=== PATIENT | female | born 1995 | race Caucasian/White ===

== ENCOUNTER 2020-12-18 06:06 | Inpatient (IN) ==
[2020-12-18] MEDS ORDERED: BUTORPHANOL 2 MG/ML VIAL IV PRN (06:15)
[2020-12-18] MEDS ORDERED: ONDANSETRON 4 MG/2 ML VIAL IV PRN ×2 (06:15→20:17)
[2020-12-18] MEDS ORDERED: MEPERIDINE 50 MG/1 ML VIAL IV PRN (06:15)
[2020-12-18] MEDS: LACTATED RINGERS 1,000 ML IV SCH ×2 (06:47→17:04)
[2020-12-18 06:51] LABS: Basophils % 0.3 % (0.0-0.8); Eosinophils # 0.2 10*3/uL (0.0-0.87); Eosinophils % 1.6 % (0.00-10.9); Hematocrit 33.2 VOL% (35.7-47.0); Hemoglobin 10.9 GM/DL (12.0-16.0); Immature Granulocytes % 0.8 %; Immature Granulocytes Absolute 0.07 #; Lymphocytes % 21.5 % (21.3-54.2); Mean Corpuscular HGB Conc 32.8 GM/DL (32-36); Mean Corpuscular Volume 92.5 FL (87-102); Mean Platelet Volume 10.8 FL (9.6-12.0); Monocytes % 6.5 % (1.7-12.7); Neutrophils % 69.3 % (38.7-73.9); Platelet Count 276 T/CUMM (130-400); Red Blood Count 3.59 MC/CUMM (3.8-5.5); Red Cell Distribution Width 12.5 % (9.3-17.3); White Blood Count 9.3 T/CUMM (4-12)
[2020-12-18] MEDS ORDERED: AMPICILLIN INJ 2,000 MG in SODIUM CHLORIDE 0.9% 100 ML IV ONE (07:12)
[2020-12-18] MEDS: OXYTOCIN/LR 20 UNIT/1,000 ML BAG IV SCH ×2 (07:19→20:27)
[2020-12-18 07:25] LABS: Albumin 2.5 G/DL (3.4-5.0); Bilirubin,Total 0.5 MG/DL (0.20-1.00); Calcium 8.2 MG/DL (8.5-10.1); Osmolality,Calculated 276.5 MOS/KG (273-304); Potassium 3.6 MMOL/L (3.5-5.1); Total Protein 6.2 G/DL (6.4-8.2)
[2020-12-18] MEDS: AMPICILLIN INJ 1,000 MG in SODIUM CHLORIDE 0.9% 100 ML IV SCH ×3 (11:31→20:29)
[2020-12-18] MEDS ORDERED: FAMOTIDINE 20 MG/2 ML VIAL IV ONE (12:37)
[2020-12-18] MEDS ORDERED: LACTATED RINGERS 1,000 ML IV ONE (12:37)
[2020-12-18] MEDS ORDERED: ePHEDrine 50 MG/ML VIAL IV PRN (12:37)
[2020-12-18] MEDS ORDERED: CITRIC ACID/SODIUM CITRATE 30 ML UDCUP PO ONE (12:37)
[2020-12-18] MEDS ORDERED: PROMETHAZINE 25 MG/1 ML VIAL IM ONE (12:38)
[2020-12-18] MEDS ORDERED: NALOXONE 0.4 MG/ML VIAL IV PRN (12:38)
[2020-12-18] MEDS ORDERED: hydrOXYzine HCL 25 MG/1 ML VIAL IM PRN (12:38)
[2020-12-18] MEDS ORDERED: diphenhydrAMINE 50 MG/1 ML VIAL IV PRN ×2 (12:38)
[2020-12-18] MEDS ORDERED: LACTATED RINGERS 1,000 ML IV SCH (13:00)
[2020-12-18] MEDS ORDERED: fentaNYL 2 MCG/ROPIV 0.2% EPID 100 ML EPIDURAL SCH (13:00)
[2020-12-18 15:12] LABS: Bacteria,Urine Occasional /HPF (Few); Bilirubin,Urine Negative (Negative); Blood, Urine Negative (Negative); Glucose,Urine (UA) Negative (Negative); Hyaline Casts,Urine 1 /LPF (0-3); Ketones,Urine 20 mg/dL (Negative); Mucus,Urine Occasional /LPF (Occasional); Nitrite,Urine Negative (Negative); Protein,Urine Negative; RBC,Urine <1 /HPF (0-4); Urine Appearance CLEAR (Clear); Urine Color Straw (Yellow); Urine Specific Gravity 1.008 (1.001-1.035); Urine Urobilinogen < 2.0 EU/DL (0.2-1.0)
[2020-12-18] MEDS ORDERED: SODIUM CHLORIDE 0.9% 0 ML IV ONE (17:37)
[2020-12-18] MEDS ORDERED: miSOPROStoL 200 MCG TABLET ONE (17:37)
[2020-12-18] MEDS ORDERED: TRANEXAMIC ACID 1,000 MG/10 ML VIAL ONE (17:37)
[2020-12-18] MEDS ORDERED: CARBOPROST TROMETHAMINE 250 MCG/ML AMP IM ONE (17:38)
[2020-12-18] MEDS ORDERED: METHYLERGONOVINE 0.2 MG/1 ML AMP ONE ×2 (17:38→19:42)
[2020-12-18] MEDS ORDERED: LIDOCAINE 1% 50 ML VIAL ONE (19:34)
[2020-12-18] MEDS ORDERED: METHYLERGONOVINE 0.2 MG/1 ML AMP IM ONE (19:44)
[2020-12-18 20:00] LABS: Cord Venous Blood HCO3 21.3 MMOL/L; Cord Venous Blood PCO2 44.1 MMHG; Cord Venous Blood PO2 24.4
[2020-12-18] MEDS ORDERED: BISACODYL 10 MG SUPP RECTAL PRN (20:17)
[2020-12-18] MEDS ORDERED: LANOLIN 50% CREAM 0.3 OZ TUBE TOP PRN (20:17)
[2020-12-18] MEDS ORDERED: WITCH HAZEL PADS 100/JAR TOP PRN (20:17)
[2020-12-18] MEDS ORDERED: oxyCODONE/ACETAMINOPHEN 5-325 MG TABLET PO PRN (20:17)
[2020-12-18] MEDS ORDERED: HYDROCORTISONE 2.5% RECTAL CREAM 30 GM TUBE TOP PRN (20:17)
[2020-12-18] MEDS ORDERED: BENZOCAINE 20%/MENTHOL 0.5% SPRAY 56 GM CAN TOP PRN (20:17)
[2020-12-18] MEDS ORDERED: ACETAMINOPHEN 325 MG TABLET PO PRN (20:17)
[2020-12-18] MEDS: DOCUSATE SODIUM 100 MG CAPSULE PO SCH (21:00)
[2020-12-18] MEDS: IBUPROFEN 800 MG TABLET PO PRN (22:25)
[2020-12-19] MEDS: oxyCODONE/ACETAMINOPHEN 5-325 MG TABLET PO PRN ×2 (00:32→06:05)
[2020-12-19] MEDS: LACTATED RINGERS 1,000 ML IV SCH (01:58)
[2020-12-19 05:48] LABS: Basophils # 0.1 10*3/uL (0.0-0.2); Basophils % 0.4 % (0.0-0.8); Eosinophils # 0.2 10*3/uL (0.0-0.87); Eosinophils % 1.4 % (0.00-10.9); Hematocrit 31.7 VOL% (35.7-47.0); Hemoglobin 10.1 GM/DL (12.0-16.0); Immature Granulocytes % 0.6 %; Immature Granulocytes Absolute 0.07 #; Lymphocytes # 2.2 10*3/uL (1.4-4.0); Mean Corpuscular HGB Conc 31.9 GM/DL (32-36); Mean Corpuscular Volume 93.2 FL (87-102); Mean Platelet Volume 10.9 FL (9.6-12.0); Monocytes % 7.3 % (1.7-12.7); Neutrophils % 72.3 % (38.7-73.9); Platelet Count 216 T/CUMM (130-400); Red Cell Distribution Width 12.3 % (9.3-17.3); White Blood Count 12.2 T/CUMM (4-12)
[2020-12-19] MEDS: DOCUSATE SODIUM 100 MG CAPSULE PO SCH ×2 (09:07→21:54)
[2020-12-19] MEDS: FERROUS SULFATE 325 MG TABLET PO SCH (09:07)
[2020-12-19] MEDS: MULTIVITAMIN (PRENATAL) TABLET PO SCH (09:07)
[2020-12-19] MEDS: IBUPROFEN 800 MG TABLET PO PRN ×2 (11:20→21:54)
[2020-12-20] MEDS: oxyCODONE/ACETAMINOPHEN 5-325 MG TABLET PO PRN (04:42)
[2020-12-20] MEDS: DOCUSATE SODIUM 100 MG CAPSULE PO SCH (10:37)
[2020-12-20] MEDS: MULTIVITAMIN (PRENATAL) TABLET PO SCH (10:37)
[2020-12-20] MEDS: FERROUS SULFATE 325 MG TABLET PO SCH (10:37)
[2020-12-20] MEDS: IBUPROFEN 800 MG TABLET PO PRN (10:42)
[2020-12-20 11:12] VITALS: BP 121/73
== END 2020-12-20 14:05 | disposition home or self-care (01) | DRG 807 ==
LOC: N.LD 06:06 → N.OB 23:45
PROVIDERS: ADMIT Obstetrics & Gynecology; ATTEND Obstetrics & Gynecology